=== PATIENT | male | born 1995 | race Caucasian/White ===

== ENCOUNTER → 2018-11-03 | Outpatient (CLI) | payer OTHER ==
[~2018-11-03] MED LIST: EPI EZ PEN1 MG/ML IM; MEDROL DOSEPAK4 MG PO; NKHM
== END | disposition home or self-care (01) ==
LOC: US 16:00
DX: I25.9 Chronic ischemic heart disease, unspecified (principal)

== ENCOUNTER → 2018-11-28 | Outpatient (CLI) | payer OTHER ==
[2018-11-28 11:28] LABS: TRIGLYCERIDES 95 mg/dl (<150); VLDL CHOLESTEROL 19 mg/dL (6-40)
[2018-11-28 11:31] LABS: CHOLESTEROL 158 mg/dL (<200); HDL CHOLESTEROL 33 mg/dl (40-60); LDL CHOLESTEROL 106 mg/dL (9-159)
== END | disposition home or self-care (01) ==
LOC: CT 11-21 09:00 → LAB 09:26 → CT 10:00
PROVIDERS: Family Medicine
DX: R22.1 Localized swelling, mass and lump, neck (principal); Z82.49 Family history of ischemic heart disease and other diseases of the circulatory system